=== PATIENT | female | born 1970 | race Caucasian/White ===

== ENCOUNTER 2017-02-27 21:05 | Emergency (ER) | payer OTHER ==
[2017-02-27 21:13] VITALS: BP 155/87; BMI 29.2
--- NOTE | 2017-02-27 21:44 | DR.GENAD ---
HPI - PCP Primary Care Physician: JUAN JOSE JONES - Complaint/Symptoms Chief Complaint Doctors Comments: Patient states that she works at the [employer] and they did some spraying today do not know for what. She started having diarrhea today around 1200. Admits to 10-12 watery stools. Chief Complaint:: PT C/O DIARRHEA AND SHARP ABD PAIN. PT STATES SHE HAD BLOOD IN HER LAST STOOL JUST PRIOR TO COMING TO THE ER. Self Treatment fo Chief Complaint: ZANTAC - Source History Provided: Patient - Mode of Arrival Mode of Arrival: Ambulatory - Timing Onset of Chief Complaint: 02/27/17 PMH - PMH Past Medical History: Yes Past Medical History: Hypertension Past Medical History Comment: GRAVES DISEASE Past Surgical History: Yes Surgical History: Hysterectomy - Family History History of Family Medical Conditions: Yes Family Medical History: Diabetes Mellitus, Cancer, [place], Coronary Artery Disease, Heart Failure, Hypertension - Social History Alcohol Use: None Do you use any recreational Drugs:: No Lives With: Family Lives Where: Home - infectious screening In the last 2 months have you had wt loss of >10#?: NO Have you had fever, night sweats or hemotysis?: No Have you traveled outside the country in the last 6 months?: No Isolation: Standard ROS - Review of Systems Eyes: No Symptoms Reported ENTM: No Symptoms Reported Respiratoy: No Symptoms Reported Cardiovascular: No Symptoms Reported Gastrointestinal/Abdominal: Diarrhea Genitourinary: No Symptoms Reported Neurological: No Symptoms Reported Musculoskeletal: No Symptoms Reported Integumentary: No Symptoms Reported Hematologic/Lymphatic: No Symptoms Reported Endocrine: No Symptoms Reported Psychiatric: No Symptoms Reported All Other Systems: Reviewed and Negative PE - Vital Signs Vitals: Pulse Rate 79 Respiratory Rate 20 Blood Pressure [Right Arm] 162/93 Blood Pressure [Left Arm] 128/70 Blood Pressure 155/87 O2 Sat by Pulse Oximetry 100 - General Limitations: No Limitations General Appearance: Alert, In No Apparent Distress - Head Head Exam: Normal Inspection, Atraumatic - Eyes Eye exam: Normal Appearance, PERRL, EOMI - ENT ENT Exam: Normal Exam External Ear Exam: Normal External Inspection TM/Canal Exam: Bilateral Normal Nose Exam: Normal Nose Exam Mouth Exam: Normal Inspection Throat Exam: Normal Inspection - Neck Neck Exam: Normal Inspection - Chest Chest Inspection: Normal Inspection - Respiratory Respiratory Exam: Normal Lung Sounds Bilat Respiratory Exam: Bilateral Clear to Auscultation - Cardiovascular Cardiovascular Exam: Regular Rate, Normal Rhythm - Abdominal Exam Abdominal Exam: Normal Inspection, Normal Bowel Sounds Abdominal Tenderness: Suprapubic - Extremities Extremities Exam: Normal Inspection, Full ROM - Back Back Exam: Normal Inspection, Full ROM - Neurologic Neurological Exam: Alert, Oriented X3, CN II-XII Intact - Psychiatric Psychiatric Exam: Normal Affect, Normal Mood - Skin Skin Exam: Warm, Dry, Intact Course - Reevaluation 1st: Unchanged ROR - Labs Reviewed Result Diagrams: 02/27/17 21:56 02/27/17 21:56 Laboratory: WBC 12.3 X10^3/uL (3.6-10.0) H 02/27/17 21:56 RBC 4.94 X10^6/uL (3.5-5.4) 02/27/17 21:56 Hgb 15.5 g/dL (12.0-16.0) 02/27/17 21:56 Hct 44.2 % (36.0-47.0) 02/27/17 21:56 MCV 89.6 fL (80.0-100.0) 02/27/17 21:56 MCH 31.4 pg (27.0-34.0) 02/27/17 21:56 MCHC 35.0 g/dL (33.0-35.0) 02/27/17 21:56 RDW 13.3 % (11.6-16.5) 02/27/17 21:56 Plt Count 220 X10^3/uL (150.0-450.0) 02/27/17 21:56 MPV 9.7 fL (7.4-11.0) 02/27/17 21:56 Neut % 48.5 % (42.0-75.0) 02/27/17 21:56 Lymph % 42.1 % (21.0-51.0) 02/27/17 21:56 Vance % 7.4 % (0.0-13.0) 02/27/17 21:56 Eos % 1.5 % (0.9-2.9) 02/27/17 21:56 Baso % 0.5 % (0.2-1.0) 02/27/17 21:56 Neut # 5.9 x10^3/uL (2.2-4.8) H 02/27/17 21:56 Lymph # 5.2 X10^3/uL (1.3-2.9) H 02/27/17 21:56 Vance # 0.9 x10^3/uL (0.3-0.8) H 02/27/17 21:56 Eos # 0.2 x10^3/uL (0.0-0.2) 02/27/17 21:56 Baso # 0.1 X10^3/uL (0.0-0.1) 02/27/17 21:56 Absolute Nucleated RBC 0.0 /100WBC 02/27/17 21:56 Sodium 139 mmol/L (136-145) 02/27/17 21:56 Corrected Sodium 140 mmol/L (136-145) 02/27/17 21:56 Potassium 3.6 mmol/L (3.5-5.1) 02/27/17 21:56 Chloride 104 mmol/L (98-107) 02/27/17 21:56 Carbon Dioxide 28.3 mmol/L (21-32) 02/27/17 21:56 BUN 16 mg/dL (7-18) 02/27/17 21:56 Creatinine 0.94 mg/dL (0.55-1.02) 02/27/17 21:56 Est GFR (MDRD) Af Amer > 60 (>60) 02/27/17 21:56 Est GFR (MDRD) Non-Af > 60 (>60) 02/27/17 21:56 Glucose 127 mg/dL (65-99) H 02/27/17 21:56 Calcium 8.9 mg/dL (8.5-10.1) 02/27/17 21:56 Corrected Calcium TNP 02/27/17 21:56 Total Bilirubin 0.20 mg/dL (0.2-1.0) 02/27/17 21:56 AST 14 Units/L (15-37) L 02/27/17 21:56 ALT 25 Units/L (12-78) 02/27/17 21:56 Alkaline Phosphatase 101 Units/L (46-116) 02/27/17 21:56 C-Reactive Protein 5.50 mg/L (0-3.0) H 02/27/17 21:56 Total Protein 7.7 g/dL (6.4-8.2) 02/27/17 21:56 Albumin 3.9 g/dL (3.4-5.0) 02/27/17 21:56 Globulin 3.8 g/dL (2.5-4.5) 02/27/17 21:56 Albumin/Globulin Ratio 1.0 Ratio (1.1-2.1) L 02/27/17 21:56 Specimen Type Clean catch urine 02/27/17 22:30 Urine Color Yellow (YELLOW) 02/27/17 22:30 Urine Appearance Clear (CLEAR) 02/27/17 22:30 Urine pH 5.0 (5.0 - 8.0) 02/27/17 22:30 Ur Specific [place] 1.015 (1.000-1.030) 02/27/17 22:30 Urine Protein Negative (NEGATIVE) 02/27/17 22:30 Urine Glucose (UA) Negative (NEGATIVE) 02/27/17 22:30 Urine Ketones Negative (NEGATIVE) 02/27/17 22:30 Urine Occult Blood 1+ (NEGATIVE) 02/27/17 22:30 Urine Nitrite Negative (NEGATIVE) 02/27/17 22:30 Urine Bilirubin Negative (NEGATIVE) 02/27/17 22:30 Urine Urobilinogen Normal (NORMAL) 02/27/17 22:30 Ur Leukocyte Esterase Negative (NEGATIVE) 02/27/17 22:30 Urine RBC 0-3 /HPF (NEGATIVE) 02/27/17 22:30 Urine WBC 0-3 /HPF (NEGATIVE) 02/27/17 22:30 Ur Squamous Epith Cells Moderate /HPF (NEGATIVE) 02/27/17 22:30 Urine Bacteria Negative /HPF (NEGATIVE) 02/27/17 22:30 Ur Culture Indicated? No/not indicated 02/27/17 22:30 Stool Description Fob 02/27/17 22:40 Stl Occult Blood (IFOB) Positive (NEGATIVE) A 02/27/17 22:40 Stool for White Cells Cancelled 02/27/17 22:40 H. pylori IgG Antibody Negative (NEGATIVE) 02/27/17 21:56 - XRAY XRAY Interpreted by: Radiologist (KUB: negative) - Diagnosis Discharge Problem: Acute diarrhea - Discharge Plan Condition: Stable Prescriptions: Dicyclomine HCl [Bentyl Cap 10 mg] 10 mg PO TID #20 cap - Follow ups/Referrals Follow ups/Referrals: JONES,ENMA L [Primary Care Provider] - 3 days - Instructions
[2017-02-27] MEDS ORDERED: NS 1000 ML 1,000 ML IV ONE (21:48)
[2017-02-27] MEDS ORDERED: BENTYL I.M. INJ 10 MG IM ONE ×2 (21:48→21:52)
[2017-02-27] MEDS ORDERED: NS 1000 ML 1,000 ML ONE (21:51)
[2017-02-27 22:16] LABS: BASOPHILS # (AUTO) 0.1 X10^3/uL (0.0-0.1); BASOPHILS % (AUTO) 0.5 % (0.2-1.0); EOSINOPHILS # (AUTO) 0.2 x10^3/uL (0.0-0.2); EOSINOPHILS % (AUTO) 1.5 % (0.9-2.9); HEMATOCRIT 44.2 % (36.0-47.0); HEMOGLOBIN 15.5 g/dL (12.0-16.0); LYMPHOCYTES # (AUTO) 5.2 X10^3/uL (1.3-2.9); LYMPHOCYTES % (AUTO) 42.1 % (21.0-51.0); MEAN CORPUSCULAR HEMOGLOBIN 31.4 pg (27.0-34.0); MEAN CORPUSCULAR VOLUME 89.6 fL (80.0-100.0); MEAN PLATELET VOLUME 9.7 fL (7.4-11.0); MONOCYTES # (AUTO) 0.9 x10^3/uL (0.3-0.8); MONOCYTES % (AUTO) 7.4 % (0.0-13.0); NEUTROPHILS # (AUTO) 5.9 x10^3/uL (2.2-4.8); NEUTROPHILS % (AUTO) 48.5 % (42.0-75.0); PLATELET COUNT 220 X10^3/uL (150.0-450.0); RED BLOOD COUNT 4.94 X10^6/uL (3.5-5.4); RED CELL DISTRIBUTION WIDTH 13.3 % (11.6-16.5); WHITE BLOOD COUNT 12.3 X10^3/uL (3.6-10.0)
[2017-02-27 22:22] LABS: ALANINE AMINOTRANSFERASE 25 Units/L (12-78); ALBUMIN 3.9 g/dL (3.4-5.0); ALKALINE PHOSPHATASE 101 Units/L (46-116); ASPARTATE AMINO TRANSFERASE 14 Units/L (15-37); BLOOD UREA NITROGEN 16 mg/dL (7-18); CALCIUM 8.9 mg/dL (8.5-10.1); CARBON DIOXIDE 28.3 mmol/L (21-32); CHLORIDE 104 mmol/L (98-107); COR NA(FOR HYPERGLY) 140 mmol/L (136-145); CREATININE 0.94 mg/dL (0.55-1.02); GLUCOSE 127 mg/dL (65-99); SODIUM 139 mmol/L (136-145); TOTAL PROTEIN 7.7 g/dL (6.4-8.2); eGFR BLACK RACES > 60 (>60); eGFR NON BLACK RACES > 60 (>60)
--- NOTE | 2017-02-27 22:26 | RAD ---
HISTORY: Abdominal pain Study: Single-view of the abdomen Comparison: CT 02/26/2013 Findings: Single-view abdomen demonstrates a normal nonobstructive bowel gas pattern. No abnormal calcificatio ns are seen. The osseous structures appear intact. IMPRESSION: 1. Negative single view of the abdomen. Reported By:
[2017-02-27 23:01] LABS: APPEARANCE,URINE CLEAR (CLEAR); BILIRUBIN,URINE NEGATIVE (NEGATIVE); BLOOD/HEMOGLOBIN,URINE 1+ (NEGATIVE); COLOR,URINE YELLOW (YELLOW); GLUCOSE, URINE NEGATIVE (NEGATIVE); KETONES,URINE NEGATIVE (NEGATIVE); LEUKOCYTE ESTERASE ,URINE NEGATIVE (NEGATIVE); NITRITES,URINE NEGATIVE (NEGATIVE); PROTEIN,URINE NEGATIVE (NEGATIVE); RBC,URINE 0-3 /HPF (NEGATIVE); UROBILINOGEN,URINE NORMAL (NORMAL)
[2017-02-27 23:02] LABS: BACTERIA,URINE NEGATIVE /HPF (NEGATIVE); SQUAMOUS EPITHELIAL CELL,UR MODERATE /HPF (NEGATIVE)
[2017-02-27] MEDS ORDERED: LEVSIN/MAALOX/LIDOC VISC PO ONE (23:13)
[2017-02-27] MEDS ORDERED: LEVSIN/MAALOX/LIDOC VISC ONE (23:14)
== END 2017-02-28 00:15 | disposition home or self-care (01) ==
LOC: ER 21:28
DX: R19.7 Diarrhea, unspecified (principal)
CPT/HCPCS: 36415; 74000; 80053; 81001; 82270; 85025; 86140; 86677; 87205; 96365; 96367; 96372; 99283; A4222; J0500

== ENCOUNTER 2017-05-04 10:03 | Emergency (ER) | payer OTHER ==
[2017-05-04 10:10] VITALS: BP 148/96; BMI 28.3
[2017-05-04] MEDS ORDERED: TORADOL 60 MG VIAL IM ONE (10:28)
--- NOTE | 2017-05-04 10:28 | DR.GENAD ---
HPI - PCP Primary Care Physician: JUAN JOSE JONES - Complaint/Symptoms Chief Complaint Doctors Comments: Patient fell while on the job injured right knee and left elbow. She reports that the knee pain is 10, sharp, aggravated by motion,occured less than one hour ago. Chief Complaint:: "I FELL IN THE COOL[employer] AT WORK AND HIT MY LEFT ELBOW AND RIGHT KNEE" Self Treatment fo Chief Complaint: NONE - Source History Provided: Patient - Mode of Arrival Mode of Arrival: Wheelchair - Timing Onset of Chief Complaint: 05/04/17 PMH - PMH Past Medical History: Yes Past Medical History: Hypertension, Hyperthyroidism, Hypothyroidism Past Surgical History: Yes Surgical History: Hysterectomy, Tonsillectomy Past Surgical History Comment: RIGHT KNEE SURGERY - Family History History of Family Medical Conditions: Yes Family Medical History: Diabetes Mellitus, Hypertension - Social History Does patient currently use any type of tobacco product: Yes Have you used tobacco products in the last 12 months: No Type of Tobacco Use: Cigarettes How many years tobacco product used: 30 Does any household member use tobacco: Yes Alcohol Use: None Do you use any recreational Drugs:: No Lives With: Spouse Lives Where: Home - infectious screening In the last 2 months have you had wt loss of >10#?: NO Have you had fever, night sweats or hemotysis?: No Have you traveled outside the country in the last 6 months?: No Isolation: Standard ROS - Review of Systems Eyes: No Symptoms Reported ENTM: No Symptoms Reported Respiratoy: No Symptoms Reported Cardiovascular: No Symptoms Reported Gastrointestinal/Abdominal: No Symptoms Reported Genitourinary: No Symptoms Reported Neurological: No Symptoms Reported Musculoskeletal: No Symptoms Reported Integumentary: See HPI, Rash (left elbow) Hematologic/Lymphatic: No Symptoms Reported, See HPI Endocrine: No Symptoms Reported Psychiatric: No Symptoms Reported PE - Vital Signs Vitals: Temperature 97.4 F Pulse Rate 93 Respiratory Rate 18 Blood Pressure [Right Arm] 162/93 Blood Pressure [Left Arm] 128/70 Blood Pressure 148/96 O2 Sat by Pulse Oximetry 96 - General General Appearance: Alert, In No Apparent Distress - Head Head Exam: Normal Inspection, Atraumatic - Eyes Eye exam: Normal Appearance, PERRL, EOMI - ENT ENT Exam: Normal Exam External Ear Exam: Normal External Inspection TM/Canal Exam: Bilateral Normal Nose Exam: Normal Nose Exam Mouth Exam: Normal Inspection Throat Exam: Normal Inspection - Neck Neck Exam: Normal Inspection, Full ROM - Chest Chest Inspection: Normal Inspection - Respiratory Respiratory Exam: Normal Lung Sounds Bilat Respiratory Exam: Bilateral Clear to Auscultation - Cardiovascular Cardiovascular Exam: Regular Rate - Abdominal Exam Abdominal Exam: Normal Inspection Abdominal Tenderness: negative: RUQ, RLQ, LUQ, LLQ, Epigastrium, Suprapubic, Diffuse, Mild, Moderate, Severe, Other - Extremities Extremities Exam: Tenderness (tenderness of right knee) - Back Back Exam: Normal Inspection - Neurologic Neurological Exam: Alert, Oriented X3, CN II-XII Intact - Psychiatric Psychiatric Exam: Normal Affect, Normal Mood - Skin Skin Exam: Warm, Dry, Other (left elbow with abrasion, ) ROR - XRAY XRAY Interpreted by: Radiologist (Right Knee: No fracture dislocation or joint effusion is seen. There is a prominent spur extending cephalad from the patella./ Articular spaces are well maintained. Impression : Degenerative change manifest as spur formation of the patella No evidence of fracture, dislocation or joint effusion is seen. Elbow: No acute cortical disruption or dislocation is identified. No significant joint effusion can be seen. The radial head is unremarkable in its appearance. There is a small olecranon spur present with minimal overlying soft tissue swelling) - Diagnosis Discharge Problem: Degenerative spur formation of Patella, left elbow spur formation-min swelling Contusion of right knee Qualifiers: Encounter type: initial encounter Qualified Code(s): S80.01XA - Contusion of right knee, initial encounter Abrasion of left elbow Qualifiers: Encounter type: initial encounter Qualified Code(s): S50.312A - Abrasion of left elbow, initial encounter - Discharge Plan Condition: Stable - Follow ups/Referrals Follow ups/Referrals: ENMA JONES [Primary Care Provider] - 3 days - Instructions
[2017-05-04] MEDS ORDERED: TORADOL 60 MG VIAL ONE (10:32)
--- NOTE | 2017-05-04 11:40 | RAD ---
HISTORY: Injury at work, left elbow pain Study: Three-view left elbow Comparison: No priors Findings: No acute cortical disruption or dislocation is identified. No significant joint space effusion can b e seen. The radial head is unremarkable in its appearance. There is a small olecranon spur present w ith minimal overlying soft tissue swelling. IMPRESSION: Small olecranon spur with minimal overlying soft tissue swelling. No fracture, dislocation or joint effusion is seen. Reported By:
--- NOTE | 2017-05-04 11:46 | RAD ---
HISTORY: Work injury, right knee pain Study: Two-view right knee Comparison: 11/04/2012, report only Findings: No fracture, dislocation or joint effusion is seen. There is a prominent spur extending cephalad from the patella. Articular spaces are well maintained. IMPRESSION: Degenerative change manifest as spur formation of the patella. No evidence of fracture, dislocation or joint effusion is seen Reported By:
== END 2017-05-04 12:12 | disposition home or self-care (01) ==
LOC: ER 10:15
DX: S80.01XA Contusion of right knee, initial encounter (principal); S50.312A Abrasion of left elbow, initial encounter; M25.761 Osteophyte, right knee; M25.722 Osteophyte, left elbow; W01.198A Fall on same level from slipping, tripping and stumbling with subsequent striking against other object, initial encounter; Y92.69 Other specified industrial and construction area as the place of occurrence of the external cause
CPT/HCPCS: 29530; 73070; 73560; 80305; 99282; J1885